=== PATIENT | male | born 1990 | race Caucasian/White ===

== ENCOUNTER 2016-11-02 12:56 | Emergency (ER) | payer SELFPAY | END 2016-11-02 18:02 | disposition home or self-care (01) | LOC: ER 12:56 | DX: R41.0 Disorientation, unspecified (principal); F17.210 Nicotine dependence, cigarettes, uncomplicated; V49.40XA Driver injured in collision with unspecified motor vehicles in traffic accident, initial encounter | CPT/HCPCS: 36415; 80307; 96374; J2060 ==